=== PATIENT | female | born 2000 | race Caucasian/White ===

== ENCOUNTER 2020-04-21 14:25 | Outpatient (REF) | payer MEDICAID, SELFPAY ==
[2020-04-21 15:19] LABS: Bilirubin Negative (Negative); Blood Negative (Negative); Clarity Clear (Clear); Glucose Negative (Negative); Ketones Negative (Negative); Leukocyte Esterase Negative (Negative); Nitrite Negative (Negative); Specific Gravity 1.015 (1.005-1.025); Urobilinogen 0.2 EU/dL (Up TO 0.2); pH 7.5 (5-8)
[2020-04-22 12:52] LABS: Chlamydia Result Negative (Negative); GC Result Negative (Negative)
== END 2020-04-21 14:45 ==
LOC: NCHCN 14:25
PROVIDERS: Visit Provider Nurse Practitioner Family
DX: R35.0 Frequency of micturition (principal)
CPT/HCPCS: 87491; 87591; 81003

== ENCOUNTER 2021-01-08 19:28 | Outpatient (CLI) | payer MEDICAID, SELFPAY ==
--- NOTE | 2021-01-08 | DI.RAD_ITS ---
Exam(s) XR FINGER RT LITTLE EXAM: XR FINGER RT LITTLE CLINICAL HISTORY: RT FINGER PAIN M79.644 CONCERN FOR CONTUSION VS FRACTURE. TECHNIQUE: 2D digital imaging was performed of the right finger. Three views were obtained. PA/AP, oblique, and lateral views were obtained. COMPARISON: No exams were available for comparison FINDINGS: BONES: No acute fracture is present. No bony destructive lesion is seen. JOINTS: No dislocation present. SOFT TISSUE: Normal. IMPRESSION: No evidence of acute fracture, dislocation, or subluxation. DATA REPOSITORY: RADIATION DOSE DELIVERED:
== END 2021-01-08 19:48 ==
PROVIDERS: PCP Nurse Practitioner Family; Visit Provider Physician Assistant Medical
DX: M79.644 Pain in right finger(s) (principal)
CPT/HCPCS: 73140

== ENCOUNTER 2021-02-20 10:20 | Outpatient (REF) | payer MEDICAID, SELFPAY ==
[2021-02-20 14:16] LABS: HCT 39.1 % (36.0-46.0); HGB 13.2 g/dL (11.2-15.7); MCH 30.4 pg (27.0-33.0); MCHC 33.8 % (32.0-36.0); MCV 90.1 fL (80-95); MPV 11.9 fL (8.0-11.0); Platelet Count 218 10^3/uL (130-400); RBC 4.34 10^6/uL (3.93-5.22); RDW 12.6 % (11.7-14.6); RDW-SD 41.9 fL; WBC 5.35 10^3/uL (4.4-10.8)
[2021-02-20 14:36] LABS: Anion Gap 9.1 mmol/L (3-11); BUN 9 mg/dL (7-18); CO2 24.9 mmol/L (21.0-32.0); CREATININE 0.8 mg/dL (0.55-1.02); Calcium 8.9 mg/dL (8.5-10.1); Chloride 107 mmol/L (98-107); Glucose 96 mg/dL (74-106); Potassium 4.3 mmol/L (3.5-5.1); Sodium 141 mmol/L (136-145); TSH 1.15 uIU/mL (0.36-3.74)
== END 2021-02-20 10:21 | disposition home or self-care (01) ==
LOC: NCHCN 10:20
PROVIDERS: PCP Nurse Practitioner Family; Visit Provider Physician Assistant
DX: R42 Dizziness and giddiness (principal)
CPT/HCPCS: 80048; 85027; 84439; 84443

== ENCOUNTER 2021-09-12 18:03 | Emergency (ER) | payer MEDICAID, SELFPAY ==
[2021-09-12 18:07] VITALS: BP 134/75; PULSE 96; TEMP 36.4; O2SAT 97
--- NOTE | 2021-09-12 18:22 | NUR.NOTE ---
pt states that she has 4 hemeroids and she can not even see her rectum . she also adds that no one is looking at me or touching me she aggreed to come to the room and speak with the MD . she said that her PCP never looks down there and she has no reason to go to [facility] Note:
--- NOTE | 2021-09-12 18:32 | ED.GENADUL_ITS ---
Discharge Plan Disposition Patient Disposition: HOME Condition: Improving Discharge Details Clinical Impression: Hemorrhoids Primary Care Provider: Mark Hill ED Provider: Miah Escalera Home Meds and New Rx's Prescriptions: Continued dextroamphetamine-amphetamine [Adderall XR] 25 mg capsule,extended release 24hr 25 mg PO DAILY omeprazole 20 mg capsule,delayed release(DR/EC) 20 mg PO DAILY dicyclomine 20 mg tablet 20 mg PO QID PRN (Reason: abdominal pain) Qty: 30 0RF vtfergidyv-villawfjlwgvi-rxyx [Fioricet] 50-300-40 mg capsule 1 cap PO TID PRN (Reason: pain) Qty: 20 0RF Rx Instructions: take 1-2 caps as needed for migraines not to exceed 6 tabs a day gabapentin 100 mg capsule 100 mg PO TID Qty: 30 0RF Rx Instructions: Take to help with numbness to hand cyclobenzaprine 5 mg tablet 5 mg PO QHS Qty: 20 0RF Rx Instructions: Take 1-2 tabs at sleep for neck pain witch simi 20 % Pads, Medicated TOPICAL PRN Discontinued prednisone 20 mg tablet 40 mg PO DAILY Qty: 10 0RF Rx Instructions: Take 2 tabs for 5 days to help with pain to neck, and numbness No Action Preparation H Cream 1 applic PRN PRN Discharge Instructions Instructions: Hemorrhoids (ED) Additional Instructions: As we discussed we will refer you to general surgery for follow-up. A referral has been placed to care management. The office number is [phone]. You may have an early thrombosed hemorrhoid as we discussed. You may continue to use of Tucks medicated pads or witch simi pads for comfort. We will stop Preparation H and have you begin hydrocortisone cream. You may apply this 3-4 times daily and a small amount. Return to the ER for any acute concerns. Medical Decision Making This is a 20-year-old female with a history of recurrent hemorrhoids. She noticed for new hemorrhoids this week and they became more painful over the course of the past 24 hours. She has had normal bowel movements, no fever or abdominal pain. My exam appears to have for hemorrhoids, 3 of which are soft and reducible, 1 appears to be either stage of early thrombosis. Discussed with her incision or drainage of the thrombosed hemorrhoid which she wishes to avoid tonight. We will trial increased hydrocortisone cream and referral to general surgery as she prefers to see a female provider for this problem. She understands home care as well as follow-up. HPI General Mode of arrival: ambulatory . Date/Time Provider Initiated Documentation: 09/12/21 18:12 . Limitations to Documentation: no limitations . Information obtained by: patient . History of Present Illness 20 year old F presents to the emergency department with the chief complaint of Hemorrhoids, recurrent, described as moderate, Quality is described as dull and constant, and is localized to the abdomen. Patient reports no radiation. Patient started experiencing this day(s) and it has been constant. No relieving factors improve symptom(s), No exacerbating factors reported . Patient notes denies fever/chills. Patient did receive the following treatments prior to arrival, none Related Data Home Medications Medication Instructions Recorded Confirmed anpqwilngb-yyiqszzhzxpuv-fkujdsoz 1 cap PO TID PRN pain #20 caps 09/07/21 09/12/21 50 mg-300 mg-40 mg capsule (Fioricet) cyclobenzaprine 5 mg tablet 5 mg PO QHS #20 tabs 09/07/21 09/12/21 dextroamphetamine-amphetamine ER 25 mg PO DAILY 09/07/21 09/12/21 25 mg 24hr capsule,extend release (Adderall XR) dicyclomine 20 mg tablet 20 mg PO QID PRN abdominal pain 09/07/21 09/12/21 #30 tabs gabapentin 100 mg capsule 100 mg PO TID #30 caps 09/07/21 09/12/21 omeprazole 20 mg capsule,delayed 20 mg PO DAILY 09/07/21 09/12/21 release phenyleph-shark liver 1 applic PRN PRN 09/12/21 09/12/21 rul-yikmqu-gmf rectal cream witch simi 20 % topical pads pad topical PRN 09/12/21 Previous Rx's Medication Instructions Recorded lngiedjytl-wglmlgwghjnqi-bdfxdrxy 1 cap PO TID PRN pain #20 caps 09/07/21 50 mg-300 mg-40 mg capsule (Fioricet) cyclobenzaprine 5 mg tablet 5 mg PO QHS #20 tabs 09/07/21 dicyclomine 20 mg tablet 20 mg PO QID PRN abdominal pain 09/07/21 #30 tabs gabapentin 100 mg capsule 100 mg PO TID #30 caps 09/07/21 Allergies Allergy/AdvReac Type Severity Reaction Status Date / Time No Known Allergies Allergy Verified 09/12/21 18:10 General Stated Complaint: Vascular LEONIDAS: 3 Review of Systems Narrative: No abdominal pain, no vaginal bleeding or discharge. Otherwise healthy young female. PFSH All Active Problems (Updated 09/12/21 @ 18:35 by Miah Escalera MD) Hemorrhoids (Acute) Abdominal pain (Acute) Chronic abdominal pain (Acute) Migraines (Chronic) Social History Smoking risk assessment performed?: No Drug use: Never Do you feel safe at home: Yes Do you feel safe in your relationship?: Yes Exam Narrative Exam Narrative: GEN: awake, alert, oriented 3. Pleasant, well groomed, interactive. HEAD: Normocephalic, atraumatic ENT: Mucous membranes moist, oropharynx unremarkable, External ear exam unremarkable EYES: PERRL, EOMI NECK: Full ROM, no NAJMA, no menigismus CHEST/RESP: No respiratory distress ABDOMEN: Soft, nontender, no mass. There are 4 hemorrhoids present, one is firm and slightly thrombosed at the approximate 9 o'clock position. EXT: Full ROM, no edema, no rash Neuro: Grossly normal neurologic exam, conversant, interactive. Psych: Speech fluent, thoughts congruent, affect normal Course Vital Signs Vital signs: Vital Signs Temperature 36.4 C L 09/12/21 18:07 Pulse 96 H 09/12/21 18:07 Blood Pressure 134/75 09/12/21 18:07 Pulse Oximetry 97 09/12/21 18:07 Temperature 36.4 C L 09/12/21 18:07 Temperature Source Tympanic 09/12/21 18:07 Pulse 96 H 09/12/21 18:07 Respiratory Effort 09/12/21 18:20 Blood Pressure 134/75 09/12/21 18:07 Blood Pressure Position Sitting 09/12/21 18:07 Pulse Oximetry 97 09/12/21 18:07 Oxygen Delivery Method Room Air 09/12/21 18:07 Oxygen Flow Rate 0 09/12/21 18:07 Pain Level 10 09/12/21 18:07
--- NOTE | 2021-09-12 18:48 | NUR.NOTE ---
Dr. Escalera requesting consult with general surgery for hemorrhoids. CLB
== END 2021-09-12 19:22 | disposition home or self-care (01) ==
PROVIDERS: Emergency Provider Emergency Medicine; PCP Physician Assistant
DX: K64.4 Residual hemorrhoidal skin tags (principal)
CPT/HCPCS: 99282

== ENCOUNTER 2022-03-29 07:24 | Emergency (ER) | payer MEDICAID, SELFPAY ==
[2022-03-29] VITALS (19 sets, daily range): BP systolic 110–139; BP diastolic 69–84; PULSE 83–108; RESP 10–27; TEMP 37.1; O2SAT 99–100
[2022-03-29] MEDS: methylPREDNISolone SUCC 125 MG VIAL 60 MG IVP (08:02)
[2022-03-29] MEDS: diphenhydrAMINE 50 MG/ML VIAL IVP (08:02)
--- NOTE | 2022-03-29 09:16 | W.ED.GENAD ---
Discharge Plan Disposition Patient Disposition: Home Condition: Stable Discharge Details Clinical Impression: Allergic reaction, Hives Primary Care Provider: Mark Hill ED Provider: Sal Matthews Home Meds and New Rx's Prescriptions: New epinephrine [EpiPen] 0.3 mg/0.3 mL auto-injector 0.3 mg IM ONCE PRN (Reason: anaphylaxis) Qty: 1 0RF Rx Instructions: as a single dose; may repeat once Continued dextroamphetamine-amphetamine [Adderall XR] 25 mg capsule,extended release 24hr 25 mg PO DAILY omeprazole 20 mg capsule,delayed release(DR/EC) 20 mg PO DAILY No Action gabapentin 300 mg capsule 300 mg PO TID PRN (Reason: numbness in hands) Discharge Instructions Instructions: Urticaria (ED), General Allergic Reaction (ED) Additional Instructions: Please avoid flavored tobacco that may have caused allergic reaction. Please take Benadryl 25 mg every 8 hours for the next 2 days. Please take prednisone as prescribed. Please contact your primary care physician to arrange follow-up. Please follow-up with an technical support specialist. Return to the ER immediately for any worsening or new concerning symptoms. Referrals: Mark Hill [Primary Care Provider] - Discharge Data Discharge Date/Time-TO BE ENTERED AT DEPARTURE: 03/29/22 10:18 Medical Decision Making 21-year-old female here with hives. Concern for allergic reaction likely to citrus flavored inhaled nicotine yesterday. Airway intact. Patient tachycardic but normotensive. Patient treated with Benadryl 50 mg IV and Solu-Medrol 60 mg IV. Patient was observed emergency department and had improvement in rash. Tachycardia resolved. Airway remained intact. She was feeling much better with no itching. Patient was instructed to avoid flavored nicotine and follow-up with funeral home associate. I will continue burst prednisone and provide EpiPen should she have anaphylaxis in the future. Usual customary discharge instructions were reviewed with the patient. Sign Out No HPI General Mode of arrival: ambulatory. Date/Time Provider Initiated Documentation: 03/29/22 07:41. Limitations to Documentation: no limitations. Information obtained by: patient. HPI Narrative: 21-year-old female presents with chief complaint of rash. Rash described as itchy and red. Started yesterday around 4 PM and has persisted. Unsure of etiology. Patient took Benadryl which she thinks made the rash worse. No associated fever. She did use new citrus flavored vape yesterday. No associated difficulty breathing, wheeze or oral swelling. Related Data Home Medications Medication Instructions Recorded Confirmed dextroamphetamine-amphetamine ER 25 mg PO DAILY 09/07/21 03/30/22 25 mg 24hr capsule,extend release (Adderall XR) omeprazole 20 mg capsule,delayed 20 mg PO DAILY 09/07/21 03/30/22 release epinephrine 0.3 mg/0.3 mL 0.3 mg (0.3 mL) IM ONCE PRN 03/29/22 03/30/22 injection, auto-injector (EpiPen) anaphylaxis #1 ea gabapentin 300 mg capsule 300 mg PO TID PRN numbness in hands 04/16/22 Previous Rx's Medication Instructions Recorded epinephrine 0.3 mg/0.3 mL 0.3 mg (0.3 mL) IM ONCE PRN 03/29/22 injection, auto-injector (EpiPen) anaphylaxis #1 ea Allergies Allergy/AdvReac Type Severity Reaction Status Date / Time No Known Allergies Allergy Verified 04/16/22 10:24 General Stated Complaint: Allergic LEONIDAS: 3 Review of Systems All systems reviewed & are unremarkable except as noted in HPI and below Constitutional Constitutional: Denies fever(s) Cardiovascular Cardiovascular: Denies dyspnea Respiratory Respiratory: Denies dyspnea PFSH All Active Problems Well woman exam with routine gynecological exam (Acute) Allergic reaction (Acute) Hives (Acute) Acute urticaria (Acute) Near syncope (Acute) Abdominal pain (Acute) Chronic abdominal pain (Acute) Migraines (Chronic) Family History Other Hypertension Social History Smoking/Tobacco Use Status: Current every day Tobacco Type: e-cigarettes Smoking risk assessment performed?: Yes Alcohol Intake: current Alcohol Intake frequency: a few times a month Drug use: Occasionally Substance use type: marijuana Do you feel safe at home: Yes Do you feel safe in your relationship?: Yes History History 1 Para Hx # Term Pregnancies Multiple births Hx # Pregnancies Ectopic pregnancies AB induced Hx Number of Living Children AB spontaneous 1 Past Pregnancies Del. Date GA/Weeks # Preg Succ Route Wgt Sex Labor Lgth Anesthesia Location Prov Complic 10/20/20 16 No Exam Const General: cooperative and no acute distress HENMT Mouth: moist mucous membranes Throat: posterior oropharynx normal Eyes Conjunctivae: normal conjunctivae Sclera: normal sclerae EOM: EOM intact bilaterally Neck Neck: trachea midline and supple Resp Effort & Inspection: normal respiratory effort Auscultation: clear to auscultation bilaterally, no rales, no rhonchi and no wheezes Cardio Rate: tachycardic Rhythm: regular rhythm GI Palpation: soft, not firm, no guarding, no masses, not rigid and nontender Skin Rashes: rashes noted (hives torso and extremities) Neuro General: patient alert, patient awake, patient oriented x3 and tone normal Extrem General: no edema Psych Appearance: grossly normal Mental Status: mental status grossly normal Speech and Movement: speech and movement normal Course Vital Signs Vital signs: Vital Signs Temperature 37.1 C 03/29/22 07:27 Pulse 108 H 03/29/22 07:27 Respiratory Rate 27 H 03/29/22 07:27 Blood Pressure 139/82 03/29/22 07:27 Pulse Oximetry 100 03/29/22 07:27 Temperature 37.1 C 03/29/22 07:27 Temperature Source Oral 03/29/22 07:27 Pulse 84 03/29/22 09:01 Pulse 87 03/29/22 09:10 Respiratory Rate 18 03/29/22 09:10 Respiratory Effort Non-Labored 03/29/22 07:32 Respiratory Pattern Normal 03/29/22 07:32 Blood Pressure 115/70 03/29/22 09:01 Blood Pressure Mean 80 03/29/22 09:01 Blood Pressure Position Sitting 03/29/22 07:27 Pulse Oximetry 100 03/29/22 07:27 Oxygen Delivery Method Room Air 03/29/22 07:27 Oxygen Flow Rate 0 03/29/22 07:27 Pain Level 0 03/29/22 07:27 PAWSS Have you Been Recently Intoxicated or Drunk Within the Last 30 days?: No Have you Ever Experienced Previous Episodes of Alcohol Withdrawal?: No Have you ever Experienced Withdrawal Seizures?: No Have you ever Experienced Delirium Tremens(DT)s?: No Have you ever undergone Alcohol Rehabilitation Treatment (i.e, inpt ot outpatient treatment programs)?: No Have you ever Experienced Blackouts?: No Have you ever Combined Alcohol with other Downers within the last 90 days?: No Have you ever Combined Alcohol with any other Substance of Abuse during the last 90 days?: No Result: 0
== END 2022-03-29 10:18 | disposition home or self-care (01) ==
PROVIDERS: Emergency Provider Student in an Organized Health Care Education/Training Program; PCP Physician Assistant
DX: L50.8 Other urticaria (principal); R00.0 Tachycardia, unspecified
CPT/HCPCS: 96374; 96375; 99284; 99283; J1200; J2930

== ENCOUNTER 2022-03-29 23:54 | Emergency (ER) | payer MEDICAID, SELFPAY ==
[2022-03-30] VITALS (9 sets, daily range): BP systolic 113–121; BP diastolic 64–69; PULSE 86–94; RESP 10–24; TEMP 37; O2SAT 97–100
--- NOTE | 2022-03-30 00:51 | ED.GENADUL_ITS ---
Discharge Plan Disposition Patient Disposition: Home Condition: Stable Discharge Details Clinical Impression: Acute urticaria Primary Care Provider: Mark Hill ED Provider: Silvino Corrales Home Meds and New Rx's Prescriptions: New hydroxyzine HCl 25 mg tablet 25 mg PO QID Qty: 30 0RF loratadine 10 mg tablet 10 mg PO DAILY Qty: 10 0RF No Action dextroamphetamine-amphetamine [Adderall XR] 25 mg capsule,extended release 24hr 25 mg PO DAILY omeprazole 20 mg capsule,delayed release(DR/EC) 20 mg PO DAILY epinephrine [EpiPen] 0.3 mg/0.3 mL auto-injector 0.3 mg IM ONCE PRN (Reason: anaphylaxis) Qty: 1 0RF Rx Instructions: as a single dose; may repeat once prednisone 20 mg tablet 40 mg PO DAILY Qty: 8 0RF Discharge Instructions Instructions: Urticaria (ED) Additional Instructions: At this time you are still demonstrate a mild rash/hives which is likely secondary to an agent that is causing a mild allergic reaction. Please continue to take your home steroids and Benadryl as directed by Dr. Matthews. Additionally 2 new prescriptions have been sent to your pharmacy on file. Please take these: Loratadine and Atarax as prescribed. If you notice any worsening of your symptoms, or any new symptoms such as vomiting, diarrhea, fever, chills, shortness of breath, chest pain, numbness, weakness, or fainting , please return immediately to the emergency department for reevaluation. Please follow up with your primary care provider as soon as possible for reassessment and reevaluation. As always, it was a pleasure participating in your medical care today. Referrals: Mark Hill [Primary Care Provider] - Discharge Data Discharge Date/Time-TO BE ENTERED AT DEPARTURE: 03/30/22 01:01 Medical Decision Making 21-year-old female presents today for evaluation of rash. Patient was seen earlier this morning, at that time she developed mild hives which was suspected to be secondary to a vaping flavor that she did not normally utilize. She was given Benadryl, steroids, and discharged home with an EpiPen. She tolerated this well. She states that throughout the day the symptoms have slowly returned. She took a Benadryl at 6 PM and noticed no improvement. She denies using any more of the old the vape pen or flavor. She admits to notable itchiness, and is requesting additional medications for treatment of rash. She denies any vomiting or diarrhea. No other complaints at this time. No other modifying factors. Exam demonstrates mild hives over the arms, chest, and back. No evidence of anaphylaxis. Vital signs stable. I discussed the scenario with the patient, and she did verbalize her frustration with not having available allergy testing at the emergency department, as well as her continued itchiness and rash. I did discuss her various options as she demonstrates no signs of anaphylaxis or other life-threatening rash at this time. I did discuss the options of epinephrine, Benadryl, Atarax and loratadine and more steroids. Patient made it very clear that she did not want another IV. She also made it very clear that she did not want any Benadryl as she felt that this was only making things worse. I did offer her an additional dose of steroids, with recommendation for continued use of her current steroids, as well as loratadine and Atarax. Patient has excepted these options, and does not want to stay in the emergency department for any continued observation and is requesting discharge. Patient was given these medications. She otherwise feels stable. No current clinical evidence of staph scalded skin syndrome, erythema multiforme, erythema migrans, toxic epidermal necrolysis, Benitez-Nahun syndrome, Kawasaki-like rash, meningococcemia, pemphigus vulgaris, or necrotizing fasciitis. I have extensively reviewed the treatment plan and discharge instructions with the patient and their family. I have addressed all patient concerns at this time. The patient and family was made aware of what symptoms to monitor for that would warrant a return to the emergency department. Discussed the plan with the patient and family, they demonstrate verbal understanding and agreement with our assessment and plan at this time. The documentation in this chart was dictated using [employer] dictation software. Please excuse any dictation errors. Sign Out No HPI General Date/Time Provider Initiated Documentation: 03/29/22 23:56 . HPI Narrative: 21-year-old female presents today for evaluation of rash. Patient was seen earlier this morning, at that time she developed mild hives which was suspected to be secondary to a vaping flavor that she did not normally utilize. She was given Benadryl, steroids, and discharged home with an EpiPen. She tolerated this well. She states that throughout the day the symptoms have slowly returned. She took a Benadryl at 6 PM and noticed no improvement. She denies using any more of the old the vape pen or flavor. She admits to notable itchiness, and is requesting additional medications for treatment of rash. She denies any vomiting or diarrhea. No other complaints at this time. No other modifying factors. Related Data Home Medications Medication Instructions Recorded Confirmed dextroamphetamine-amphetamine ER 25 mg PO DAILY 09/07/21 03/30/22 25 mg 24hr capsule,extend release (Adderall XR) omeprazole 20 mg capsule,delayed 20 mg PO DAILY 09/07/21 03/30/22 release epinephrine 0.3 mg/0.3 mL 0.3 mg (0.3 mL) IM ONCE PRN 03/29/22 03/30/22 injection, auto-injector (EpiPen) anaphylaxis #1 ea prednisone 20 mg tablet 40 mg PO DAILY #8 tabs 03/29/22 03/30/22 hydroxyzine HCl 25 mg tablet 25 mg PO QID #30 tabs 03/30/22 loratadine 10 mg tablet 10 mg PO DAILY #10 tabs 03/30/22 Previous Rx's Medication Instructions Recorded epinephrine 0.3 mg/0.3 mL 0.3 mg (0.3 mL) IM ONCE PRN 03/29/22 injection, auto-injector (EpiPen) anaphylaxis #1 ea prednisone 20 mg tablet 40 mg PO DAILY #8 tabs 03/29/22 hydroxyzine HCl 25 mg tablet 25 mg PO QID #30 tabs 03/30/22 loratadine 10 mg tablet 10 mg PO DAILY #10 tabs 03/30/22 Allergies Allergy/AdvReac Type Severity Reaction Status Date / Time No Known Allergies Allergy Verified 03/30/22 00:09 General Stated Complaint: Allergic LEONIDAS: 3 Review of Systems All systems reviewed & are unremarkable except as noted in HPI and below PFSH All Active Problems Allergic reaction (Acute) Hives (Acute) Acute urticaria (Acute) Near syncope (Acute) Abdominal pain (Acute) Chronic abdominal pain (Acute) Migraines (Chronic) Social History Smoking/Tobacco Use Status: Current every day Tobacco Type: e-cigarettes Smoking risk assessment performed?: Yes Alcohol Intake: current Alcohol Intake frequency: a few times a month Drug use: Occasionally Substance use type: marijuana Do you feel safe at home: Yes Do you feel safe in your relationship?: Yes Exam Narrative Exam Narrative: 1.Const: Well-nourished, Well-developed, appearing stated age 2.Eyes: PERRL, no conjunctival injection, and symmetrical lids. 3.ENT: Atraumatic external nose and ears. Moist MM. Neck: Symmetric, trachea midline, No thyromegaly. 4.CVS: +S1/S2, No murmurs or gallops. Peripheral pulses 2+ and equal in all extremities. Brisk capillary refill in all extremities. 5.RESP: Unlabored respiratory effort. Clear to auscultation bilaterally. No wheezes rales or rhonchi 6.GI: Soft, Nontender/Nondistended, No hepatosplenomegaly. No guarding or rebound. 7.MSK: Normocephalic/Atraumatic, Extremities w/o deformity or ttp No cyanosis or clubbing, Normal movement of all extremities 8.Skin: Warm, Dry. Patient demonstrates hives over her anterior upper chest, back, and arms. No oral lesions. Negative Nikolsky sign. No large vesicles or bulla. No palpable purpura. No oral lesions. No mucosal lesions. No evidence of severe cellulitis. No evidence of vaccine preventable rash. 9.Neuro: scientific advisor II-XII grossly intact. Sensation grossly intact, no focal neurologic deficits. 10.Psych: (AAO) x3. Appropriate mood and affect Course Vital Signs Vital signs: Vital Signs Temperature 37.0 C 03/30/22 00:06 Pulse 91 H 03/30/22 00:06 Respiratory Rate 16 03/30/22 00:06 Blood Pressure 121/69 03/30/22 00:06 Pulse Oximetry 97 03/30/22 00:06 Temperature 37.0 C 03/30/22 00:06 Temperature Source Temporal Artery Scan 03/30/22 00:06 Pulse 91 H 03/30/22 00:06 Respiratory Rate 16 03/30/22 00:06 Respiratory Effort 03/30/22 00:06 Blood Pressure 121/69 03/30/22 00:06 Blood Pressure Position Sitting 03/30/22 00:06 Pulse Oximetry 97 03/30/22 00:06 Oxygen Delivery Method Room Air 03/30/22 00:06 Oxygen Flow Rate 0 03/30/22 00:06 Pain Level 0 03/30/22 00:06
[2022-03-30] MEDS: predniSONE 20 MG TAB 60 MG PO (01:00)
[2022-03-30] MEDS: Loratidine 10 MG TAB PO (01:00)
[2022-03-30] MEDS: hydrOXYzine HCL 25 MG TAB PO (01:00)
== END 2022-03-30 01:02 | disposition home or self-care (01) ==
PROVIDERS: Emergency Provider Student in an Organized Health Care Education/Training Program; PCP Physician Assistant
DX: L50.8 Other urticaria (principal)
CPT/HCPCS: 99283; J7512

== ENCOUNTER 2022-04-16 11:08 | Outpatient (REF) | payer MEDICAID, SELFPAY ==
--- NOTE | 2022-04-16 10:45 | PAPFT_PTH ---
PATIENT: Zuleima Arias LOC: [facility] U#:[id number] AGE/SX: 21/F ROOM: RE04/16/[address]: Avani Garnica DO : 2000 BED: DIS: 04/16/2022 SPEC #: [id number] RECD: 04/16/22 12:45 STATUS: ANJALIRosie REQ #: [id number] PARRISH: 04/16/22 10:[address]: Avani Garnica DEPT: [facility] Cytology RECD BY: Slime Bunch ENTERED: 04/16/22 12:45 SP TYPE: PAPFT OTHR DR: Mark Hill Tissues: 1 - CX/ENDOCX FOR PAP SMEARS Procedures: PAP THIN PREP/UVM Screening Comments: [id number] (CHLAMYDIA/GC)
[2022-04-19 14:03] LABS: Chlamydia Result Negative (Negative); GC Result Negative (Negative)
== END 2022-04-16 11:09 | disposition home or self-care (01) ==
LOC: LBN 11:08
PROVIDERS: PCP Physician Assistant; Visit Provider Obstetrics & Gynecology
DX: Z11.3 Encounter for screening for infections with a predominantly sexual mode of transmission (principal); Z12.4 Encounter for screening for malignant neoplasm of cervix; B37.32 Chronic candidiasis of vulva and vagina
CPT/HCPCS: 87491; 87591; 88142

== ENCOUNTER 2023-05-06 16:27 | Outpatient (REF) | payer MEDICAID, SELFPAY ==
[2023-05-08 12:48] LABS: Chlamydia Result Negative (Negative); GC Result Negative (Negative)
== END 2023-05-06 16:28 | disposition home or self-care (01) ==
LOC: LBN 16:27
PROVIDERS: PCP Physician Assistant; Visit Provider Advanced Practice Midwife
DX: Z11.3 Encounter for screening for infections with a predominantly sexual mode of transmission (principal)
CPT/HCPCS: 87491; 87591

== ENCOUNTER 2024-05-08 15:07 | Outpatient (REF) | payer BC, SELFPAY ==
[2024-05-10 13:24] LABS: Chlamydia Result Negative (Negative); GC Result Negative (Negative)
== END 2024-05-08 15:08 | disposition home or self-care (01) ==
LOC: LBN 15:07
PROVIDERS: PCP Physician Assistant; Visit Provider Nurse Practitioner Women's Health
DX: Z11.3 Encounter for screening for infections with a predominantly sexual mode of transmission (principal); Z30.41 Encounter for surveillance of contraceptive pills; Z01.419 Encounter for gynecological examination (general) (routine) without abnormal findings
CPT/HCPCS: 87491; 87591